=== PATIENT | female | born 1950 ===

== ENCOUNTER 2018-05-18 15:33 | Inpatient (IN) | payer MEDICARE, OTHER ==
[~2018-05-18] VITALS: Ht 157.5 cm; Wt 65.3 kg
[2018-05-18] MEDS ORDERED: LITH300C2 PO (15:51)
[2018-05-18] MEDS ORDERED: RISP3TAB5 PO (15:51)
[2018-05-18] MEDS ORDERED: AMLODIPINE (15:51)
[2018-05-18] MEDS ORDERED: BENADRYL (15:51)
[2018-05-18 16:24] LABS: BASOPHILS % (AUTO) 0.6 % (0.0-2.0); EOSINOPHILS # (AUTO) 0.1 K/uL (0.0-0.7); EOSINOPHILS % (AUTO) 1.8 % (0.0-7.0); HEMATOCRIT 41.5 % (31.2-41.9); HEMOGLOBIN 14.2 g/dL (10.9-14.3); LYMPHOCYTES # (AUTO) 1.3 K/uL (20.0-40.0); LYMPHOCYTES % (AUTO) 17.6 % (20.5-51.5); MEAN CORPUSCULAR HEMOGLOBIN 31.1 uug (24.7-32.8); MEAN CORPUSCULAR HGB CONC 34 g/dL (32.3-35.6); MEAN CORPUSCULAR VOLUME 91.1 fL (75.5-95.3); MONOCYTES # (AUTO) 0.6 K/uL (2.0-10.0); MONOCYTES % (AUTO) 7.8 % (0.0-11.0); NEUTROPHILS # (AUTO) 5.3 K/uL (1.8-8.9); NEUTROPHILS % (AUTO) 72.2 % (38.5-71.5); PLATELET COUNT (AUTO) 301 K/uL (179-408); RED BLOOD CELL COUNT(AUTO) 4.55 MIL/uL (3.63-4.92); WHITE BLOOD COUNT (AUTO) 7.4 K/uL (3.8-11.8)
[2018-05-18 16:27] LABS: *BILIRUBIN,URIN NEGATIVE (NEGATIVE); *BLOOD, URINE Trace-intact (NEGATIVE); *CLARITY,URINE SLIGHTLY HAZY (CLEAR); *COLOR,URINE YELLOW (YELLOW); *KETONES,URINE NEGATIVE (NEGATIVE); *PROTEIN,URINE NEGATIVE (NEGATIVE); *UROBILINOGEN,URINE 0.2 E.U./dl (NORMAL); LEUKOCYTE ESTERASE ,URINE 2+ (NEGATIVE); NITRITE, URINE NEGATIVE (NEGATIVE); UGLUCOSE NEGATIVE (NEGATIVE)
[2018-05-18 16:32] LABS: BACTERIA,URINE NONE SEEN /HPF (NONE SEEN); RBC,URINE 0-3 /HPF (0-3); SQUAMOUS EPITHELIAL CELL,UR FEW /HPF (NONE SEEN)
[2018-05-18 16:34] LABS: CARBON DIOXIDE 30 mmol/L (21-32); CHLORIDE 108 mmol/L (98-107); GLUCOSE 112 mg/dL (74-106); POTASSIUM 4.1 mmol/L (3.5-5.1); UREA NITROGEN, BLOOD 19 mg/dL (7-18)
[2018-05-18 16:41] LABS: ACETAMINOPHEN < 2.0 ug/mL (10-30); ALANINE AMINOTRANSFERASE 25 U/L (14-59); ALKALINE PHOSPHATASE 111 U/L (50-136); ASPARTATE AMINOTRANSFERASE 13 U/L (15-37); BILIRUBIN,DIRECT 0.1 mg/dL (0.0-0.2); BILIRUBIN,TOTAL 0.4 mg/dL (0.2-1.0); TOTAL PROTEIN, SERUM 7.8 g/dL (6.4-8.2)
[2018-05-18 16:48] LABS: *AMPHETAMINE, URINE NEGATIVE (NEGATIVE); *BARBITURATE, URINE NEGATIVE (NEGATIVE); *CANNABINOID, URINE NEGATIVE (NEGATIVE); *COCCAINE, URINE NEGATIVE (NEGATIVE); *OPIATE, URINE NEGATIVE (NEGATIVE); *PHENCYCLIDINE SCREEN,URINE NEGATIVE (NEGATIVE)
[2018-05-18 16:50] LABS: ETHANOL < 3 MG/DL (0-0)
--- NOTE | 2018-05-18 16:55 | NUR ---
MSE COMPLETED, MRSA-NARES ORDERED-SENT, SDBAR REPORTB TO [facility], BELONGINGS LIST DONE.
[2018-05-18 17:00] LABS: THYROID STIMULATING HORMONE 0.899 mIU/mL (0.358-3.740)
--- NOTE | 2018-05-18 17:34 | NUR ---
MEDICALLY CLEARED BY DR MELGAR
--- NOTE | 2018-05-18 17:44 | NUR ---
TRANSFERED TO [facility] VIA WHEELCHAIR WITH NO DISTRESS NOTED
[2018-05-18 18:00] VITALS: BP 167/67
[2018-05-18] MEDS ORDERED: ACETAMINOPHEN 325 MG TABLET PO PRN (18:15)
[2018-05-18] MEDS ORDERED: MAG HYDROX/AL HYDROX/SIMETH 30 ML LIQUID UDC PO PRN (18:15)
[2018-05-18] MEDS ORDERED: TEMAZEPAM 7.5 MG CAPSULE PO PRN (18:15)
[2018-05-18] MEDS ORDERED: MAGNESIUM HYDROXIDE 30 ML LIQUID UDC PO PRN (18:15)
[2018-05-18] MEDS ORDERED: LORAZEPAM 0.5 MG TABLET PO PRN (18:15)
--- NOTE | 2018-05-18 19:32 | NUR ---
9730 Admitted a 67 year old female from ER per w/c , placed on 5150 for DTS , patient scared of the place where she lives, she believe that people are trying to kill or hurt her. Patient alert and ox3. Admission care care done. notified regarding the admission. Endorsed to shift superintendent caustic cresylate to follow up x ray tech to reconcile medication,
[2018-05-18] MEDS ORDERED: hydrALAZINE HCL 25 MG TABLET PO PRN (19:45)
[2018-05-18 20:46] VITALS: BP 134/70
[2018-05-18] MEDS: NITROFURANTOIN/NITROFURAN MAC 100 MG CAPSULE PO SCH (21:06)
[2018-05-18] MEDS: AMLODIPINE 5 MG TABLET PO SCH (21:07)
--- NOTE | 2018-05-18 22:00 | NUR ---
received to care, lying in bed, isolative, but pleasant, upon approach. deies psychotic symptoms, but appears distracted by internal stimuli. compliant with medications. no interactions with peers, noted. she came out of her room only one time, and asked for water, and a snack. as of 2200, she appears to be asleep. no distress noted. will continue to monitor closely.
--- NOTE | 2018-05-19 06:30 | NUR ---
slept 6.75 hours. assisted with am care, and shower. no distress noted.
[2018-05-19 07:30] VITALS: BP 94/59
[2018-05-19] MEDS: NITROFURANTOIN/NITROFURAN MAC 100 MG CAPSULE PO SCH ×2 (08:17→20:15)
[2018-05-19] MEDS: AMLODIPINE 5 MG TABLET PO SCH ×2 (08:18→08:22)
[2018-05-19] MEDS: FENOFIBRATE NANOCRYSTALLIZED 145 MG TABLET PO SCH (12:02)
[2018-05-19] MEDS ORDERED: BENZTROPINE MESYLATE 0.5 MG TABLET PO SCH (12:30)
[2018-05-19] MEDS: risperiDONE 1 MG TABLET PO SCH ×2 (12:42→20:15)
[2018-05-19] MEDS: BENZTROPINE MESYLATE 1 MG TABLET PO SCH ×2 (12:42→16:29)
--- NOTE | 2018-05-19 13:32 | NUR ---
GPS/RN- PATIENT ADVISED OF 14DAY HOLD, RONA MULE DEVELOPER REQUESTED IN CASE SHE DOES NOT UNDERSTAND SOMETHING IN HEBREW, PER PATIENT REQUEST, FAXED TO COURT
[2018-05-19] MEDS: LITHIUM CARBONATE 300 MG CAPSULE PO SCH ×2 (14:15→20:15)
[2018-05-19 15:52] VITALS: BP 129/63
[2018-05-19 20:00] VITALS: BP 118/66
[2018-05-20 07:30] VITALS: BP 116/75
[2018-05-20] MEDS: LITHIUM CARBONATE 300 MG CAPSULE PO SCH ×2 (08:17→20:23)
[2018-05-20] MEDS: NITROFURANTOIN/NITROFURAN MAC 100 MG CAPSULE PO SCH (08:18)
[2018-05-20] MEDS: risperiDONE 1 MG TABLET PO SCH ×3 (08:18→21:37)
[2018-05-20] MEDS: BENZTROPINE MESYLATE 1 MG TABLET PO SCH ×2 (08:18→16:52)
[2018-05-20] MEDS: FENOFIBRATE NANOCRYSTALLIZED 145 MG TABLET PO SCH (08:18)
[2018-05-20 15:08] VITALS: BP 138/75
--- NOTE | 2018-05-20 17:30 | NUR ---
Patient refused due risperdal and cogentin. Explained risks and benefits but patient still refused.
[2018-05-20 20:00] VITALS: BP 141/66
[2018-05-21 07:30] VITALS: BP 121/63
[2018-05-21] MEDS: risperiDONE 1 MG TABLET PO SCH (08:00)
[2018-05-21] MEDS: BENZTROPINE MESYLATE 1 MG TABLET PO SCH ×2 (08:27→16:27)
[2018-05-21] MEDS: FENOFIBRATE NANOCRYSTALLIZED 145 MG TABLET PO SCH (08:27)
[2018-05-21] MEDS: LITHIUM CARBONATE 300 MG CAPSULE PO SCH ×2 (08:27→20:34)
--- NOTE | 2018-05-21 14:25 | NUR ---
Initial Discharge Plan: Pt resides at the [facility] [address]. [facility] [address] . Pt however does not want to return and is looking for new placement upon discharge. Pt does not have a current support system in place. SW will follow up to ensure pt is safely and adequately discharged.
[2018-05-21 14:36] LABS: BASOPHILS # (AUTO) 0.1 K/uL (0.0-8.0); BASOPHILS % (AUTO) 0.6 % (0.0-2.0); EOSINOPHILS # (AUTO) 0.1 K/uL (0.0-0.7); EOSINOPHILS % (AUTO) 1.5 % (0.0-7.0); HEMATOCRIT 41.7 % (31.2-41.9); HEMOGLOBIN 14.2 g/dL (10.9-14.3); LYMPHOCYTES # (AUTO) 1.2 K/uL (20.0-40.0); LYMPHOCYTES % (AUTO) 13.6 % (20.5-51.5); MEAN CORPUSCULAR HEMOGLOBIN 30.9 uug (24.7-32.8); MEAN CORPUSCULAR HGB CONC 34 g/dL (32.3-35.6); MEAN CORPUSCULAR VOLUME 90.6 fL (75.5-95.3); MONOCYTES # (AUTO) 0.4 K/uL (2.0-10.0); MONOCYTES % (AUTO) 4.3 % (0.0-11.0); NEUTROPHILS # (AUTO) 7.1 K/uL (1.8-8.9); PLATELET COUNT (AUTO) 307 K/uL (179-408); WHITE BLOOD COUNT (AUTO) 8.9 K/uL (3.8-11.8)
[2018-05-21 15:20] LABS: CREATININE 1.1 mg/dL (0.6-1.3); MAGNESIUM 2.2 mg/dL (1.8-2.4); PHOSPHOROUS 2.5 mg/dL (2.5-4.9)
[2018-05-21 16:41] VITALS: BP 121/76
[2018-05-21] MEDS ORDERED: risperiDONE 1 MG TABLET PO SCH (17:00)
[2018-05-21 19:30] VITALS: BP 145/56
--- NOTE | 2018-05-21 20:30 | NUR ---
RECEIVED TO CARE IN HER ROOM, PLEASANT UPON APPROACH,MED COMPLIANT. C/O DRY SKIN, LOTION GIVEN TO PT. CONTINUE TO MONITOR CLOSELY.
[2018-05-21] MEDS: risperiDONE 2 MG TABLET PO SCH (20:34)
[2018-05-22] MEDS: FENOFIBRATE NANOCRYSTALLIZED 145 MG TABLET PO SCH (08:48)
[2018-05-22] MEDS: BENZTROPINE MESYLATE 1 MG TABLET PO SCH ×2 (08:48→16:28)
[2018-05-22] MEDS: LITHIUM CARBONATE 300 MG CAPSULE PO SCH ×2 (08:48→21:09)
[2018-05-22 09:56] VITALS: BP 113/74
[2018-05-22 16:36] VITALS: BP 122/68
[2018-05-22 19:39] VITALS: BP 145/73
[2018-05-22] MEDS: risperiDONE 2 MG TABLET PO SCH (21:09)
[2018-05-23 07:30] VITALS: BP 138/62
[2018-05-23] MEDS: FENOFIBRATE NANOCRYSTALLIZED 145 MG TABLET PO SCH ×2 (09:00→09:38)
[2018-05-23] MEDS: BENZTROPINE MESYLATE 1 MG TABLET PO SCH ×3 (09:00→17:00)
[2018-05-23] MEDS: LITHIUM CARBONATE 300 MG CAPSULE PO SCH ×2 (09:38→20:36)
[2018-05-23 16:20] VITALS: BP 117/54
[2018-05-23 20:10] VITALS: BP 106/60
[2018-05-23 20:32] VITALS: BP 110/54
[2018-05-23] MEDS: risperiDONE 2 MG TABLET PO SCH (20:36)
--- NOTE | 2018-05-23 21:00 | NUR ---
pleasant upon approach, took bedtime meds as ordered, continues to respond to stimuli, no aggressive behavior. but gets easily irritated and defensive when monitored for cheeking
[2018-05-24 07:15] LABS: BASOPHILS # (AUTO) 0.1 K/uL (0.0-8.0); BASOPHILS % (AUTO) 0.8 % (0.0-2.0); EOSINOPHILS # (AUTO) 0.2 K/uL (0.0-0.7); EOSINOPHILS % (AUTO) 2.4 % (0.0-7.0); HEMATOCRIT 43.8 % (31.2-41.9); LYMPHOCYTES # (AUTO) 1.5 K/uL (20.0-40.0); LYMPHOCYTES % (AUTO) 20.6 % (20.5-51.5); MEAN CORPUSCULAR HEMOGLOBIN 31.3 uug (24.7-32.8); MEAN CORPUSCULAR HGB CONC 34 g/dL (32.3-35.6); MEAN CORPUSCULAR VOLUME 91.1 fL (75.5-95.3); MONOCYTES # (AUTO) 0.4 K/uL (2.0-10.0); MONOCYTES % (AUTO) 5.9 % (0.0-11.0); NEUTROPHILS # (AUTO) 5.2 K/uL (1.8-8.9); NEUTROPHILS % (AUTO) 70.3 % (38.5-71.5); PLATELET COUNT (AUTO) 320 K/uL (179-408); WHITE BLOOD COUNT (AUTO) 7.4 K/uL (3.8-11.8)
[2018-05-24 07:30] VITALS: BP 117/64
[2018-05-24 07:40] LABS: BILIRUBIN,TOTAL 0.3 mg/dL (0.2-1.0); MAGNESIUM 2.1 mg/dL (1.8-2.4); POTASSIUM 3.8 mmol/L (3.5-5.1); TOTAL PROTEIN, SERUM 8.4 g/dL (6.4-8.2)
[2018-05-24] MEDS: BENZTROPINE MESYLATE 1 MG TABLET PO SCH ×2 (09:00→17:00)
[2018-05-24] MEDS: LITHIUM CARBONATE 300 MG CAPSULE PO SCH ×2 (09:07→20:50)
[2018-05-24] MEDS: FENOFIBRATE NANOCRYSTALLIZED 145 MG TABLET PO SCH (09:07)
[2018-05-24 15:55] VITALS: BP 120/62
--- NOTE | 2018-05-24 19:30 | NUR ---
RECEIVED PATIENT IN HER ROOM IN BED, SHE IS NOTED AWAKE A/O X 3. PLEASANT AND COOPERATIVE. SHE IS ABLE TO AMBULATE WITH STEADY GAIT AND ABLE TO MAKE HER NEEDS KNOWN. [facility] INSIGHT NOTED INTO THE REASON FOR HER ADMISSION TO [facility]. SHE DENIES SI AND SHE IS ABLE TO CFS. SAFETY EMPHASIS. WILL CONTINUE TO MONITOR.
[2018-05-24 20:33] VITALS: BP 119/63
[2018-05-24] MEDS: risperiDONE 2 MG TABLET PO SCH (20:50)
--- NOTE | 2018-05-25 07:01 | NUR ---
PATIENT SLEPT FOR APPROX 7.30 HRS THROUGH THE NIGHT. DENIES SI AND SHE IS ABLE TO CFS. PT SCHEDULE FOR D/C TODAY. WILL CONTINUE TO MONITOR.
[2018-05-25 07:30] VITALS: BP 126/76
--- NOTE | 2018-05-25 09:06 | NUR ---
Discharge Note: Patient will be discharged to [facility] [[address], [place] [address]; [phone]] via ambulance. Please arrange an ambulance for this patient. Spoke with Bartolome at the facility who states they are ready to accept the patient today. Spoke with patient's sister, Reyna who is aware and agreeable with discharge plans. Alerted patient's B&C, [facility] ( ) to alert them about patient's discharge plans. Patient is alert and oriented x3, denies SI, and is agreeable with discharge plans. Patient will follow up at the facility with Dr. Blackwell (Bell Maker) and Dr. Herndon (Psychiatrist).
[2018-05-25] MEDS: FENOFIBRATE NANOCRYSTALLIZED 145 MG TABLET PO SCH (09:35)
[2018-05-25] MEDS: BENZTROPINE MESYLATE 1 MG TABLET PO SCH (09:35)
[2018-05-25] MEDS: LITHIUM CARBONATE 300 MG CAPSULE PO SCH (09:36)
--- NOTE | 2018-05-25 13:45 | NUR ---
GPS/RN- DISCHARGE NOTE patient is alert and oriented to person place time and situation compliant with meds and care pleasant on approach able to verbalize needs. instructed on discharge and follow up care. verbalized understanding. Patient discharged to [facility] [[address] [place] [address]; [phone]] via ambulance.Patient will follow up at the facility with Dr. Blackwell (Physics Technician) and Dr. Herndon (Psychiatrist).
== END 2018-05-25 13:45 | DRG 885 ==
LOC: ER 15:35 → GPS 17:35
PROVIDERS: ADMIT Psychiatry & Neurology Psychosomatic Medicine; ATTEND Internal Medicine
DX: F25.0 Schizoaffective disorder, bipolar type (principal); N39.0 Urinary tract infection, site not specified; I10 Essential (primary) hypertension; R73.9 Hyperglycemia, unspecified; E78.1 Pure hyperglyceridemia; R79.89 Other specified abnormal findings of blood chemistry; E83.52 Hypercalcemia
CPT/HCPCS: 36415; 70030-TC; 71045; 80307; 83735; 84100; 84443; 85025; 87086; 93005; A4663; G0480; G0480-TC